=== PATIENT | female | born 1965 | race African-American/Black ===

== ENCOUNTER 2019-06-14 14:33 | Emergency (ER) | payer MEDICAID, OTHER ==
[~2019-06-14] VITALS: Ht 165.1 cm; Wt 88.5 kg
[~2019-06-14 14:33] MED LIST: ACETAMINOPHEN120 MG RECTAL; ALBUTEROL SULF8.5 GM INH; BUSPAR10 MG ORAL; DELSYM30 MG/5 M1 PO; GUAIFENESIN-CO118 M1 ORAL; IBUPROFEN600 MG ORAL; LEVAQUIN750 MG ORAL; MEDROL4 MG ORAL; PREDNISONE20 M1 PO; PROTONIX40 MG ORAL; ROBITUSSIN100 MG/52 ORAL; SYMBICORT 1601 PUFFS INH; TRAMADOL HCL50 MG ORAL; TYLENOL650 MG/20. ORAL; VICODIN 5-5001 EACH PO; pr
[2019-06-14 14:40] VITALS: BP 132/90
--- NOTE | 2019-06-14 14:42 | NUR ---
ED Nurse Note: Patient walked in to ER from home due to Lt shoulder and Lt hip pain 02/03. per pt, she sliped and fell from the stairs on Friday and pain got worse today. Patient alert and oriented x4 and ambulatory but limping. Calm and cooperative. Skin clean and intact. No cardiac or acute distress noted at this time.
--- NOTE | 2019-06-14 15:08 | NUR ---
ED Nurse Note: ERPA at bedside.
[2019-06-14] MEDS ORDERED: Acetaminophen 500mg (ES) tab ORAL ONE (15:15)
--- NOTE | 2019-06-14 15:20 | Emergency Room Report ---
History of Present Illness General Chief Complaint: Upper Extremity Injury Source: Patient Present Illness HPI 54-year-old female presents to the emergency department complaining of 7 out of 10 severity pain to the left shoulder and left posterior hip status post mechanical fall down some stairs on Friday. Patient reports she has attempted to relieve her pain by taking Motrin and Epson salt baths. Patient reports despite these efforts she has not been able to experience any pain relief. She denies hitting her head or having a loss of consciousness. She denies midline neck or back pain. Denies numbness tingling or loss of sensation or gross motor movements of the extremities, incontinence of bowel or bladder. Denies CP, Palpitations, LOC, AMS, dizziness, Changes in Vision, weakness or a sudden severe headache. Pmhx of COPD. Denies SOB or dyspnea. Allergies: Coded Allergies: No Known Allergies (Unverified , 05/10/12) Patient History Past Medical History: see triage record, COPD Past Surgical History: hysterectomy Pertinent Family History: none Last Menstrual Period: HYSTERECTOMY Now: No Reviewed Nursing Documentation: PMH: Agreed; PSxH: Agreed Nursing Documentation-PMH Past Medical History: No History, Except For Hx Cardiac Problems: No Hx Hypertension: Yes Hx Pacemaker: No Hx Asthma: Yes Hx COPD: Yes - BRONCHITIS Hx Diabetes: No Hx Cancer: No Hx Gastrointestinal Problems: No Hx Dialysis: No Hx Neurological Problems: No Hx Cerebrovascular Accident: No Hx Seizures: No Review of Systems All Other Systems: negative except mentioned in HPI Physical Exam Vital Signs Date Time Temp Pulse Resp B/P (MAP) Pulse Ox O2 Delivery O2 Flow Rate FiO2 06/14/19 14:35 98.2 94 16 132/90 (104) 100 Room Air Sp02 EP Interpretation: reviewed, normal General Appearance: no apparent distress, alert, GCS 15, non-toxic Head: normocephalic, atraumatic Eyes: bilateral eye normal inspection, bilateral eye PERRL ENT: hearing grossly normal, normal voice Neck: full range of motion, no bony tend Respiratory: chest non-tender, lungs clear, normal breath sounds, no rhonchi, no wheezing, speaking full sentences Cardiovascular #1: regular rate, rhythm, no edema, normal capillary refill Musculoskeletal: back normal, gait/station normal, normal range of motion, tender - lateral and posterior TTP to the left hip and gluteus, normal leg length bilaterally. ambulatory. TTP to the posterior and lateral aspect of the left shoulder, FROM with pain, no obvious step-off or clicking. Neurologic: alert, oriented x3, responsive, motor strength/tone normal, sensory intact, normal gait, speech normal, grossly normal Psychiatric: judgement/insight normal Skin: normal color Medical Decision Making PA Attestation Dr. Chatterjee is my supervising Physician whom patient management has been discussed with. Diagnostic Impression: Primary Impression: Contusion of hip, left Qualified Codes: S70.02XA - Contusion of left hip, initial encounter Additional Impressions: Left shoulder strain Qualified Codes: S46.912A - Strain of unspecified muscle, fascia and tendon at shoulder and upper arm level, left arm, initial encounter Contusion of shoulder, left Qualified Codes: S40.012A - Contusion of left shoulder, initial encounter ER Course 54-year-old female presents to the emergency department complaining of 7 out of 10 severity pain to the left shoulder and left posterior hip status post mechanical fall down some stairs on Friday. Patient reports she has attempted to relieve her pain by taking Motrin and Epson salt baths. Patient reports despite these efforts she has not been able to experience any pain relief. She denies hitting her head or having a loss of consciousness. She denies midline neck or back pain. Denies numbness tingling or loss of sensation or gross motor movements of the extremities, incontinence of bowel or bladder. Denies CP, Palpitations, LOC, AMS, dizziness, Changes in Vision, weakness or a sudden severe headache. Pmhx of COPD. Denies SOB or dyspnea. Ddx considered but are not limited to Fracture, dislocation, contusion, Sprain/ Strain/Spasm, spinal chord injury just to name a few. Vital signs: are WNL, pt. is afebrile H&PE are most consistent with musculoskeletal injury will perform imaging to r/ o fractures/dislocations. ORDERS: - X-ray Left Hip 3 views and Left Shoulder 3 Views - negative for fx, Dislocation, or significant soft tissue injury, per preliminary read in ED, and signed by SAWYER Junior, my supervising physician has reviewed, and agrees with my interpretation. --Radiologist reports questionable acetabular fracture, and recommend CT imaging for definitive diagnosis. CT Pelvis: negative for acute fracture. ED INTERVENTIONS: - Tylenol 1g - Lidoderm tp. DISCHARGE: At this time pt. is stable for d/c to home. Will provide printed patient care instructions, and any necessary prescriptions. Care plan and follow up instructions have been discussed with the patient prior to discharge. Other X-Ray Diagnostic Results Other X-Ray Diagnostic Results #1: X-Ray ordered: Left HIP # of Views/Limited Vs Complete: 3 View Indication: Pain EP Interpretation: Yes SAWYER Xray: Interpretation reviewed, by supervising MD, and agrees with findings. Interpretation: no dislocation, no soft tissue swelling, no fractures Impression: No acute disease Electronically Signed by: Shila Junior PA-C Other X-Ray Diagnostic Results #2: X-Ray ordered: Left Shoulder # of Views/Limited Vs Complete: 3 View Indication: Pain EP Interpretation: Yes SAWYER Xray: Interpretation reviewed, by supervising MD, and agrees with findings. Interpretation: no dislocation, no soft tissue swelling, no fractures Impression: No acute disease Electronically Signed by: Shila Junior PA-C CT/MRI/US Diagnostic Results CT/MRI/US Diagnostic Results : Imaging Test Ordered: CT Pelvis No-Contrast Impression " NO acute fractures " per official radiology report- Please see report for specific details. Last Vital Signs Date Time Temp Pulse Resp B/P (MAP) Pulse Ox O2 Delivery O2 Flow Rate FiO2 06/14/19 14:40 98.2 80 16 132/90 100 Room Air Disposition: HOME, SELF-CARE Condition: Stable Scripts Acetaminophen With Codeine (T#3) (TYLENOL #3 TAB*) Y Tab 1 TAB ORAL Q6H PRN for For Pain, #12 TAB Prov: Shila Junior 06/14/19 Referrals: Damaris SHOEMAKER,REFERRING (PCP) Departure Forms: Return to Work Return to Work Date: Jun 18, 2019 Work Restrictions: No Heavy Lifting, No Prolonged Standing Other Restrictions: light duty. May return Sooner if Symptoms have resolved. Return to Full Activity: Jun 25, 2019 Patient Instructions: Contusion, [id number] Additional Instructions: Take medications as directed. Follow up with a Primary Care Provider in 3-5 days, even if your symptoms have resolved. --Please review list of primary care clinics, if you do not already have a primary care provider Return sooner to ED if new symptoms occur, or current symptoms become worse. Do not drink alcohol, drive, or operate heavy machinery while taking [ ] as this may cause drowsiness. - Please note that this Emergency Department Report was dictated using Embedded [employer] aide technology software, occasionally this can lead to erroneous entry secondary to interpretation by the dictation equipment. Shila Junior Jun 14, 2019 15:20
--- NOTE | 2019-06-14 15:26 | NUR ---
ED Nurse Note: x-ray at bedside.
--- NOTE | 2019-06-14 16:36 | Diagnostic Imaging Report ---
Indication: Left hip pain Technique: 2 views of the left hip Comparison: none Findings: There is slight irregularity of the superior acetabulum on the left. No acute hip fracture demonstrated. Impression: Possible left acetabular fracture. Consider cross-sectional imaging for further evaluation
--- NOTE | 2019-06-14 16:37 | Diagnostic Imaging Report ---
Indication: Left shoulder pain Technique: 3 views of the left shoulder Comparison: none Findings: No acute fractures. No dislocations. The joint spaces are preserved. There is an old healed fracture deformity of the posterior left fifth rib Impression: No acute bony trauma
--- NOTE | 2019-06-14 16:46 | NUR ---
ED Nurse Note: pt went to imaging for CT by WC in stable condition.
--- NOTE | 2019-06-14 16:59 | NUR ---
ED Nurse Note: pt came back from CT in stable condition.
--- NOTE | 2019-06-14 17:11 | Diagnostic Imaging Report ---
Indication: Left hip pain, trauma Technique: Noncontrast spiral acquisitions obtained through the pelvis. Multiplanar reconstructions generated. Total dose length product 1184 mGycm. CTDIvol(s) 31 mGy. Dose reduction achieved using automated exposure control Comparison: none Findings: No acute fracture demonstrated. Lucency reported on recent plain radiograph appears to be a physiologic groove. The joint spaces are preserved. There are degenerative changes of the lumbosacral junction incidentally noted. There is a lucency within the left L4 lamina which measures 11 x 5 mm. Uterus is absent. The included pelvic viscera are otherwise unremarkable. There is an 18 mm subcutaneous nodule seen in the inferomedial right buttock Impression: No acute bony trauma 18 mm nodule in the right buttock within the subcutaneous fat adjacent to the dermis, likely sebaceous or epidermal inclusion cyst or similar process. Correlate with clinical findings Prior history The above findings are in agreement with the [facility] preliminary report 11 x 5 mm lucency within the left L4 lamina. Further evaluation with bone scan should be considered to rule out metabolically active process. This finding was not reported on the [facility] preliminary report, was described by phone with Dr. Steele at the time of interpretation The CT scanner at [facility] is accredited by the [employer] and the scans are performed using protocols designed to limit radiation exposure to as low as reasonably achievable to attain images of sufficient resolution adequate for diagnostic evaluation.
[2019-06-14] MEDS ORDERED: ACETAMINOPHEN-1 EAC1 ORAL (17:41)
[2019-06-14 17:47] VITALS: BP 128/78
--- NOTE | 2019-06-14 17:48 | NUR ---
ED Nurse Note: Pt cleared by health care Provider for discharge. DC instructions/ electronic prescription was given and explained to pt and verbalized understanding of teachings. All medical deviecs such as ID band removed. Pt is AAO x4, ambulatory and left with all personal belongings.
== END 2019-06-14 17:47 | disposition home or self-care (01) ==
LOC: EMR 15:01
DX: S46.912A Strain of unspecified muscle, fascia and tendon at shoulder and upper arm level, left arm, initial encounter (principal); S40.012A Contusion of left shoulder, initial encounter; S70.02XA Contusion of left hip, initial encounter; W10.9XXA Fall (on) (from) unspecified stairs and steps, initial encounter; Y92.9 Unspecified place or not applicable; Z90.710 Acquired absence of both cervix and uterus; J44.9 Chronic obstructive pulmonary disease, unspecified; I10 Essential (primary) hypertension
CPT/HCPCS: 72192; 73030; 73510; Z7502; 73502; 99284

== ENCOUNTER 2019-08-03 15:46 | Emergency (ER) | payer OTHER ==
[~2019-08-03] VITALS: Ht 167.6 cm; Wt 86.2 kg
[~2019-08-03 15:46] MED LIST changes: +ACETAMINOPHEN-1 EAC1 ORAL
[2019-08-03 16:17] VITALS: BP 130/77
--- NOTE | 2019-08-03 17:28 | Emergency Room Report ---
History of Present Illness General Chief Complaint: Upper Respiratory Illness Source: Patient Present Illness HPI 54-year-old female presents to the emergency department complaining of 8/10 in severity cough, fevers and chills, body aches and mucus production x3 days. Patient reports her cough and wheezing has progressed over the last day as she is now out of her albuterol inhaler at home. Patient reports that she is a daily smoker she has attempted to reduce her smoking frequency for the duration of the cold. Patient states that she received the flu vaccination this year however every year she always gets a URI. Patient denies recent travel or ill contacts. Denies sore throat , ear pain CP, Palpitations, LOC, AMS, dizziness, Changes in Vision, Sensation, paresthesias, or a sudden severe headache. Allergies: Coded Allergies: No Known Allergies (Unverified , 05/10/12) Patient History Past Medical History: see triage record Past Surgical History: none Pertinent Family History: none Last Menstrual Period: none-hyst Now: No Immunizations: UTD Reviewed Nursing Documentation: PMH: Agreed; PSxH: Agreed Nursing Documentation-PMH Hx Cardiac Problems: No Hx Hypertension: Yes Hx Pacemaker: No Hx Asthma: Yes Hx COPD: Yes - BRONCHITIS Hx Diabetes: No Hx Cancer: Yes - cervical Hx Gastrointestinal Problems: No Hx Dialysis: No Hx Neurological Problems: No Hx Cerebrovascular Accident: No Hx Seizures: No Review of Systems All Other Systems: negative except mentioned in HPI Physical Exam Vital Signs Date Time Temp Pulse Resp B/P (MAP) Pulse Ox O2 Delivery O2 Flow Rate FiO2 08/03/19 15:58 99.7 108 24 130/77 (94) 97 Room Air Sp02 EP Interpretation: reviewed, normal General Appearance: no apparent distress, alert, GCS 15, non-toxic Head: normocephalic, atraumatic Eyes: bilateral eye normal inspection, bilateral eye PERRL ENT: hearing grossly normal, EOM grossly intact, normal pharynx, normal voice, TMs + canals normal, uvula midline, moist mucus membranes Neck: full range of motion Respiratory: chest non-tender, speaking full sentences, wheezing - expiratory Cardiovascular #1: regular rate, rhythm Musculoskeletal: normal range of motion, gait/station normal, non-tender Neurologic: alert, motor strength/tone normal, oriented x3, sensory intact, responsive, speech normal Psychiatric: judgement/insight normal Lymphatic: no adenopathy Medical Decision Making PA Attestation Dr. Steele is my supervising Physician whom patient management has been discussed with. Diagnostic Impression: Primary Impression: COPD exacerbation ER Course 54-year-old female presents to the emergency department complaining of 8/10 in severity cough, fevers and chills, body aches and mucus production x3 days. Patient reports her cough and wheezing has progressed over the last day as she is now out of her albuterol inhaler at home. Patient reports that she is a daily smoker she has attempted to reduce her smoking frequency for the duration of the cold. Patient states that she received the flu vaccination this year however every year she always gets a URI. Patient denies recent travel or ill contacts. Denies sore throat , ear pain CP, Palpitations, LOC, AMS, dizziness, Changes in Vision, Sensation, paresthesias, or a sudden severe headache. Ddx considered but are not limited to asthma exacerbation, CHF, URI, pneumonia, PE, strep pharyngitis, meningitis. Vital signs: Pt. is afebrile, VS are WNL H&PE are most consistent with COPD exacerbation secondary to URI ORDERS: none required at this time, the diagnosis is clinical ED INTERVENTIONS: Albuterol nebulized treatment. - re-examination post nebulized treatment lungs are CTA bilaterally. DISCHARGE: At this time pt. is stable for d/c to home. Will provide printed patient care instructions, and any necessary prescriptions. Care plan and follow up instructions have been discussed with the patient prior to discharge. Last Vital Signs Date Time Temp Pulse Resp B/P (MAP) Pulse Ox O2 Delivery O2 Flow Rate FiO2 08/03/19 16:17 99.7 104 24 130/77 97 Room Air Disposition: HOME, SELF-CARE Condition: Stable Scripts Guaifenesin (Mucinex) 1,200 Mg Tab.er.12h 1200 MG PO Q12HR for 10 Days, #20 TAB Prov: Shila Junior 08/03/19 Albuterol Sulfate* (ALBUTEROL SULFATE MDI*) 8.5 Gm Hfa.aer.ad 2 PUFF INH Q3H, #1 INH 0 Refills Prov: Shila Junior 08/03/19 Levofloxacin* (LEVAQUIN*) 500 Mg Tablet 500 MG ORAL DAILY for 7 Days, #7 TAB Prov: Shila Junior 08/03/19 Codeine/Promethazine Hcl* (PROMETHAZINE-CODEINE SYRUP*) 118 Ml Syrup 5 ML ORAL Q6H PRN for For Cough, #120 ML 0 Refills Prov: Shila Junior 08/03/19 Patient Instructions: Upper Respiratory Infection, Adult Additional Instructions: Take medications as directed. Follow up with a Primary Care Provider in 3-5 days, even if your symptoms have resolved. Return sooner to ED if new symptoms occur, or current symptoms become worse. Do not drink alcohol, drive, or operate heavy machinery while taking Cough Syrup as this may cause drowsiness. - Please note that this Emergency Department Report was dictated using [employer] communications writer technology software, occasionally this can lead to erroneous entry secondary to interpretation by the dictation equipment. Shila Junior Aug 03, 2019 17:28
[2019-08-03] MEDS ORDERED: LEVAQUIN500 MG ORAL (17:30)
[2019-08-03] MEDS ORDERED: ALBUTEROL SULF8.5 GM INH (17:30)
[2019-08-03] MEDS ORDERED: MUCINEX1200 MG PO (17:30)
[2019-08-03] MEDS ORDERED: PROMETHAZINE-C118 M1 ORAL (17:30)
[2019-08-03] MEDS ORDERED: Albuterol ud Inhalation HHN ONE (17:30)
[2019-08-03 17:59] VITALS: BP 132/79
== END 2019-08-03 18:00 | disposition home or self-care (01) ==
LOC: EMR 18:00
DX: J44.1 Chronic obstructive pulmonary disease with (acute) exacerbation (principal); I10 Essential (primary) hypertension; Z85.41 Personal history of malignant neoplasm of cervix uteri; F17.200 Nicotine dependence, unspecified, uncomplicated; Z90.710 Acquired absence of both cervix and uterus
CPT/HCPCS: 99284